=== PATIENT | female | born 1985 | race Caucasian/White ===

== ENCOUNTER 2016-12-18 17:59 | Emergency (ER) | payer OTHER ==
[2016-12-18 18:15] VITALS: BP 105/61
[2016-12-18] MEDS ORDERED: Phenazopyridine TAB* 100 MG PO ONE (19:43)
[2016-12-18] MEDS ORDERED: Sulfamethox/Trimethoprim DS 800/160* TAB PO ONE (19:43)
--- NOTE | 2016-12-18 19:50 | UC ---
Complaint Female HPI - HPI Summary HPI Summary: TWO DAYS OF WORSENING FREQUENCY, URGENCY WITH URINATION. NO NEW BACK PAIN, NO ABDOMINAL PAIN. NO BLOOD IN URINE. - History Of Current Complaint Chief Complaint: [facility] Stated Complaint: URINARY Time Seen by Provider: 12/18/16 19:36 Hx Obtained From: Patient Hx Last Menstrual Period: 12/15/16 Onset/Duration: Gradual Onset, Lasting Days, Worse Since - PROGRESSIVE Timing: Lasting Days Severity Initially: Mild Severity Currently: Mild Character: Dull Aggravating Factor(s): Urination Associated Signs And Symptoms: Positive: Fever, Back Pain - Allergies/Home Medications Allergies/Adverse Reactions: Allergies Allergy/AdvReac Type Severity Reaction Status Date / Time No Known Allergies Allergy Verified 12/18/16 18:14 PMH/Surg Hx/FS Hx/Imm Hx Previously Healthy: Yes - Surgical History Surgical History: Yes Surgery Procedure, Year, and Place: breast implants. - Family History Known Family History: Positive: None Negative: Renal Disease - Social History Occupation: Employed Full-time Lives: With Family Alcohol Use: None Substance Use Type: None Smoking Status (MU): Never Smoked Tobacco When Did the Patient Quit Smoking/Using Tobacco: 2007 Review of Systems Constitutional: Negative Skin: Negative Eyes: Negative ENT: Negative Respiratory: Negative Cardiovascular: Negative Gastrointestinal: Negative Genitourinary: Dysuria, Frequency, Urgency Motor: Negative Neurovascular: Negative Musculoskeletal: Negative Neurological: Negative Psychological: Negative All Other Systems Reviewed And Are Negative: Yes Physical Exam Triage Information Reviewed: Yes Appearance: Well-Appearing, No Pain Distress, Well-Nourished Vital Signs: Initial Vital Signs Temp 99.9 F 12/18/16 18:11 Pulse 53 12/18/16 18:11 Resp 14 12/18/16 18:11 BP 105/61 12/18/16 18:11 Pulse Ox 100 12/18/16 18:11 Vital Signs Reviewed: Yes Eye Exam: Normal ENT Exam: Normal ENT: Positive: Normal ENT inspection, Hearing grossly normal, Pharynx normal, TMs normal Dental Exam: Normal Neck exam: Normal Neck: Positive: Supple, Nontender, No Lymphadenopathy Respiratory Exam: Normal Respiratory: Positive: Chest non-tender, Lungs clear, Normal breath sounds, No respiratory distress, No accessory muscle use Cardiovascular Exam: Normal Cardiovascular: Positive: RRR, No Murmur, Pulses Normal Abdominal Exam: Normal Abdomen Description: Positive: Nontender, No Organomegaly, Soft. Negative: CVA Tenderness (R), CVA Tenderness (L) Musculoskeletal Exam: Normal Neurological Exam: Normal Psychological Exam: Normal Skin Exam: Normal Complaint Female Dx - Differential Dx/Diagnosis Differential Diagnosis/HQI/PQRI: Cervicitis, Urinary Tract Infection Provider Diagnoses: URINARY TRACT INFECTION Discharge - Discharge Plan Condition: Stable Disposition: HOME Prescriptions: Phenazopyridine TAB* [Pyridium 100 mg TAB*] 100 mg PO TID #15 tab Sulfamethox/Trimethoprim DS* [Bactrim DS 800/160 TAB*] 1 tab PO BID #10 tab Patient Education Materials: Urinary Tract Infection in Women (ED) Referrals: Amish Flood MD [Primary Care Provider] -
== END 2016-12-18 19:55 | disposition home or self-care (01) ==
LOC: UCCORT 17:59
DX: N39.0 Urinary tract infection, site not specified (principal); Z87.891 Personal history of nicotine dependence
CPT/HCPCS: 81003; 87086; 99212; A9270-GY; G0463